=== PATIENT | male | born 2000 | race Caucasian/White ===

== ENCOUNTER 2024-06-21 11:55 | Emergency (ER) | payer OTHER ==
[~2024-06-21] VITALS: Ht 167.6 cm; Wt 84.5 kg
[2024-06-21] MEDS ORDERED: TRAZODONE HCL100 MG PO (12:56)
[2024-06-21] MEDS ORDERED: ABILIFY15 MG PO (12:56)
[2024-06-21 14:42] VITALS: BP 114/73
== END 2024-06-21 14:44 | disposition home or self-care (01) ==
LOC: ED 11:55
DX: T14.91XA Suicide attempt, initial encounter (principal); X83.8XXA Intentional self-harm by other specified means, initial encounter; Z79.899 Other long term (current) drug therapy
CPT/HCPCS: 70450; 70498; 99285-25; Q9967

== ENCOUNTER 2025-02-08 19:17 | Emergency (ER) | payer OTHER ==
[~2025-02-08] VITALS: Ht 167.6 cm; Wt 89.0 kg
[~2025-02-08 19:17] MED LIST: ABILIFY15 MG PO; TRAZODONE HCL100 MG PO
[2025-02-08] MEDS ORDERED: ABILIFY MAINTE400 MG (19:30)
[2025-02-08] MEDS ORDERED: BUCAPSOL15 MG (19:30)
[2025-02-08] MEDS ORDERED: VENTOLIN HFA18 GM (19:30)
[2025-02-08 20:44] LABS: BASOPHILS 0.6 % (0.2-1.2); EOSINOPHILS 2.8 % (0.8-7.0); LYMPHOCYTES 40.5 % (21.8-53.1); MCH 30.0 PG (25.7-32.2); MCHC 33.9 g/dL (32.3-36.5); MCV 88.6 fL (79.0-92.2); MONOCYTES 8.6 % (5.3-12.2); NEUTROPHILS 47.2 % (34.0-67.9); RBC 5.00 M/uL (4.63-6.08)
[2025-02-08 20:47] LABS: BLOOD/HGB, URINE NEGATIVE (Negative); KETONE, URINE NEGATIVE (Negative); LEUK ESTERASE, URINE NEGATIVE (negative); NITRITE, URINE NEGATIVE (negative)
[2025-02-08 21:02] LABS: AMPHETAMINES, URINE NEGATIVE (NEGATIVE); BARBITURATES, URINE NEGATIVE (NEGATIVE); BENZODIAZEPINE, URINE NEGATIVE (NEGATIVE); CANNABINOID, URINE NEGATIVE (NEGATIVE); COCAINE, URINE NEGATIVE (NEGATIVE); ECSTASY, URINE NEGATIVE (NEGATIVE); FENTANYL, URINE NEGATIVE (NEGATIVE); METHADONE, URINE NEGATIVE (NEGATIVE); OPIATES, URINE NEGATIVE (NEGATIVE); OXYCODONE, URINE NEGATIVE (NEGATIVE); PHENCYCLIDINE, URINE NEGATIVE (NEGATIVE)
[2025-02-08 21:14] LABS: ALCOHOL, MEDICAL <3 mg/dL (<3); ALT (SGPT) 57 U/L (14-59); AST (SGOT) 19 U/L (15-37); GLOMERULAR FILTRATION RATE,EST 121 mL/min (>60); PROTEIN, TOTAL 8.0 g/dL (6.4-8.2); TSH, 3RD GENERATION 3.147 uIU/mL (0.358-3.740); UREA NITROGEN 18 mg/dL (7-18)
== END 2025-02-08 21:54 | disposition home or self-care (01) ==
LOC: ED 19:17
PROVIDERS: Internal Medicine
DX: T14.91XA Suicide attempt, initial encounter (principal); X83.8XXA Intentional self-harm by other specified means, initial encounter; Z79.899 Other long term (current) drug therapy
CPT/HCPCS: 36415; 70498; 80053; 80307; 81003; 84443; 85025; 99285-25; G0480; Q9967